=== PATIENT | male | born 1950 | race Caucasian/White ===

== ENCOUNTER 2024-02-20 13:40 | Inpatient (IN) | payer BC, MEDICAID ==
[~2024-02-20] VITALS: Ht 167.6 cm; Wt 84.4 kg
[2024-02-20] MEDS: ACETAMINOPHEN 325MG TABLET PO STA (17:19)
[2024-02-20 18:05] LABS: BASOPHILS % 0.2 % (0.0-2.0); HEMATOCRIT. 39.8 % (42.0-52.0); HEMOGLOBIN. 13.5 g/dL (14.0-18.0); LYMPHOCYTES % 8.3 % (20.0-50.0); MEAN CORPUSCULAR HEMOGLOBIN 31.8 pg (28.0-32.0); MEAN CORPUSCULAR VOLUME 93.7 fL (80.0-94.0); MEAN PLATELET VOLUME 7.6 fl (7.4-10.4); MONOCYTES % 13.7 % (2.0-8.0); NEUTROPHILS % 77.8 % (40.0-76.0); PLATELET 221 x1000/uL (130-400); RED BLOOD CELL COUNT 4.25 mill/uL (4.7-6.1); RED CELL DISTRIBUTION WIDTH 12.8 % (11.6-14.6); WHITE BLOOD COUNT 18.7 x1000/uL (4.5-11.0)
[2024-02-20 18:08] LABS: CHLORIDE 100 mEq/L (98-107); POTASSIUM 3.9 mEq/L (3.5-5.1); SODIUM 135 mEq/L (136-145)
[2024-02-20 18:09] LABS: CALCIUM 9.1 mg/dL (8.7-10.4); CARBON DIOXIDE 29 mEq/L (21-32)
[2024-02-20 18:14] LABS: CREATININE 0.7 mg/dL (0.6-1.3); GLUCOSE 132 mg/dL (70-105); UREA NITROGEN BLOOD 14 mg/dL (9-23)
[2024-02-20 18:16] LABS: ALANINE AMINOTRANSFERASE 27 IU/L (10-49); ALBUMIN 3.9 g/dL (3.2-4.8); ASPARTATE AMINOTRANSFERASE 27 IU/L (<34); BILIRUBIN TOTAL 0.5 mg/dL (0.1-1.0); PROTEIN TOTAL 6.9 g/dL (6.0-8.3)
[2024-02-20] MEDS: PIPERACILLIN/TAZO 3.375G/50ML 50 ML IV STA (20:13)
[2024-02-20] MEDS: KETOROLAC 15MG/ML VIAL IV ONE (20:15)
[2024-02-20 21:13] LABS: LACTIC ACID 2.7 mmol/L (0.4-2.0)
[2024-02-20] MEDS: SODIUM CHLORIDE 0.9% 500 ML IV ONE (22:08)
[2024-02-20] MEDS: SODIUM CHLORIDE 0.9% 1,000 ML IV SCH (22:30)
[2024-02-20] MEDS ORDERED: MAGNESIUM/ALUMINUM HYDROXIDE/SIMETHICONE 30ML UDC PO PRN (22:30)
[2024-02-20] MEDS ORDERED: DEXTROSE 50% WATER 50ML SYRINGE IV PRN (22:30)
[2024-02-20] MEDS ORDERED: ACETAMINOPHEN 325MG TABLET PO PRN ×2 (22:30)
[2024-02-20] MEDS ORDERED: DOCUSATE SODIUM 100MG CAPSULE PO PRN (22:30)
[2024-02-20] MEDS ORDERED: IPRATROPIUM/ALBUTEROL 0.5-3(2.5)MG/3ML NEB HHN PRN (22:30)
[2024-02-20] MEDS ORDERED: ONDANSETRON HCL 4MG/2ML INJ IV PRN (22:30)
[2024-02-20 22:32] LABS: CLARITY URINE CLOUDY (CLEAR); COLOR URINE YELLOW (YELLOW); GLUCOSE URINE NEGATIVE (NEGATIVE); KETONES URINE NEGATIVE (NEGATIVE); LEUKOCYTE ESTERASE URINE 3+ (NEGATIVE); NITRITE URINE POSITIVE (NEGATIVE); OCCULT BLOOD URINE 1+ (NEGATIVE); PH URINE 6.5 (4.5-8.0); PROTEIN URINE NEGATIVE (NEGATIVE); SPECIFIC GRAVITY URINE 1.006 (1.005-1.030); UROBILINOGEN URINE 0.2 E.U./dL (0.2-1.0)
[2024-02-20 22:47] LABS: BACTERIA URINE 2+; SQUAMOUS EPITHELIAL CELL URINE 1+ /lpf (RARE/1+); WBC URINE 25-50 /hpf (0-2)
[2024-02-20] MEDS: LEVETIRACETAM 500MG TABLET PO SCH (23:00)
[2024-02-20] MEDS ORDERED: LEVOFLOXACIN 500MG PREMIX 100 ML IV SCH (23:00)
[2024-02-20 23:27] LABS: PHOSPHORUS 3.1 mg/dL (2.5-4.9)
[2024-02-20 23:32] LABS: FOLIC ACID (FOLATE) SERUM 19.61 ng/mL (>5.38); VITAMIN B12 SERUM 411 pg/mL (211-911)
[2024-02-21] VITALS: BP 102/53; PULSE 68; RESP 18; TEMP 97.5
[2024-02-21 04:00] VITALS: BP 105/49; PULSE 72; RESP 18; TEMP 99.7
[2024-02-21] MEDS: LEVOFLOXACIN 500MG PREMIX 100 ML IV SCH (06:02)
[2024-02-21 06:04] LABS: HEMATOCRIT. 39.5 % (42.0-52.0); HEMOGLOBIN. 13.7 g/dL (14.0-18.0); MEAN CORPUSCULAR HEMOGLOBIN 31.6 pg (28.0-32.0); MEAN CORPUSCULAR HGB CONC 34.7 g/dL (31.0-37.0); MEAN CORPUSCULAR VOLUME 91.2 fL (80.0-94.0); MEAN PLATELET VOLUME 7.2 fl (7.4-10.4); PLATELET 219 x1000/uL (130-400); RED BLOOD CELL COUNT 4.33 mill/uL (4.7-6.1); RED CELL DISTRIBUTION WIDTH 12.6 % (11.6-14.6); WHITE BLOOD COUNT 17.7 x1000/uL (4.5-11.0)
[2024-02-21 06:11] LABS: CHLORIDE 103 mEq/L (98-107); SODIUM 136 mEq/L (136-145)
[2024-02-21 06:12] LABS: CALCIUM 8.7 mg/dL (8.7-10.4); CARBON DIOXIDE 26 mEq/L (21-32)
[2024-02-21 06:16] LABS: CREATINE KINASE MB FRACTION 1.7 ng/mL (0.5-3.6); DIFFERENTIAL COMMENT 1; TROPONIN I HIGH SENSITIVITY 14 ng/L (3.0-53)
[2024-02-21 06:17] LABS: CREATININE 0.7 mg/dL (0.6-1.3); GLUCOSE 114 mg/dL (70-105); TRIGLYCERIDE 58 mg/dL (0-150); UREA NITROGEN BLOOD 13 mg/dL (9-23)
[2024-02-21 06:18] LABS: LDL CHOLESTEROL 54 mg/dL (5-100)
[2024-02-21 06:19] LABS: CHOLESTEROL 86 mg/dL (<200); CREATINE KINASE 247 IU/L (46-171); HDL CHOLESTEROL 25 mg/dL (>55)
[2024-02-21 06:20] LABS: THYROID STIMULATING HORMONE 1.23 uIU/mL (0.55-4.78)
[2024-02-21] MEDS ORDERED: PROM6.2527 PO (06:55)
[2024-02-21] MEDS ORDERED: MULT-622 PO (06:55)
[2024-02-21] MEDS ORDERED: KEPP500 PO (06:55)
[2024-02-21] MEDS ORDERED: ASCO500C18 PO (06:55)
[2024-02-21] MEDS ORDERED: DOCU100T PO (06:55)
[2024-02-21] MEDS: BLOOD SUGAR DIAGNOSTIC STRIP TEST SCH (07:40)
[2024-02-21 08:00] VITALS: BP 96/53; PULSE 102; RESP 18; TEMP 97.7
[2024-02-21] MEDS: INSULIN LISPRO 100 UNITS/ML SUBCUT SCH (08:10)
[2024-02-21] MEDS: FAMOTIDINE 20MG/2ML VIAL IV SCH (10:58)
[2024-02-21] MEDS: ENOXAPARIN 40MG/0.4ML SYR SUBCUT SCH (11:00)
[2024-02-21 12:00] VITALS: BP 115/59; PULSE 93; RESP 20; TEMP 98.8
[2024-02-21 14:30] LABS: PLATELET ESTIMATE NORMAL
[2024-02-21 16:00] VITALS: BP 118/56; PULSE 97; RESP 18; TEMP 98
[2024-02-21] MEDS ORDERED: CEFTRIAXONE 1GM/50ML 50 ML IV SCH (16:45)
[2024-02-21] MEDS: PIPERACILLIN/TAZO 3.375G/50ML 50 ML IV SCH (18:47)
[2024-02-21 20:00] VITALS: BP 106/52; PULSE 88; RESP 18; TEMP 98.9
[2024-02-22] VITALS: BP 102/53; PULSE 91; RESP 19; TEMP 98.2
[2024-02-22 04:00] VITALS: BP 94/50; PULSE 92; RESP 19; TEMP 99.5
[2024-02-22 06:27] LABS: BASOPHILS % 0.2 % (0.0-2.0); EOSINOPHILS % 0.7 % (0.0-5.0); HEMATOCRIT. 38.4 % (42.0-52.0); HEMOGLOBIN. 13.1 g/dL (14.0-18.0); LYMPHOCYTES % 8.6 % (20.0-50.0); MEAN CORPUSCULAR HEMOGLOBIN 31.5 pg (28.0-32.0); MEAN CORPUSCULAR HGB CONC 34.1 g/dL (31.0-37.0); MEAN CORPUSCULAR VOLUME 92.2 fL (80.0-94.0); MEAN PLATELET VOLUME 7.2 fl (7.4-10.4); MONOCYTES % 8.7 % (2.0-8.0); NEUTROPHILS % 81.8 % (40.0-76.0); PLATELET 218 x1000/uL (130-400); RED BLOOD CELL COUNT 4.17 mill/uL (4.7-6.1); RED CELL DISTRIBUTION WIDTH 12.6 % (11.6-14.6); WHITE BLOOD COUNT 12.1 x1000/uL (4.5-11.0)
[2024-02-22 06:32] LABS: CHLORIDE 107 mEq/L (98-107); POTASSIUM 3.8 mEq/L (3.5-5.1); SODIUM 138 mEq/L (136-145)
[2024-02-22 06:33] LABS: CALCIUM 8.3 mg/dL (8.7-10.4); CARBON DIOXIDE 24 mEq/L (21-32)
[2024-02-22 06:38] LABS: CREATININE 0.7 mg/dL (0.6-1.3); GLUCOSE 115 mg/dL (70-105); UREA NITROGEN BLOOD 14 mg/dL (9-23)
[2024-02-22 08:00] VITALS: BP 105/67; PULSE 99; RESP 18; TEMP 97.6
[2024-02-22 12:00] VITALS: BP 104/79; PULSE 91; RESP 18; TEMP 97.4
[2024-02-22 16:00] VITALS: BP 110/78; PULSE 86; RESP 19; TEMP 97.4
[2024-02-22 20:00] VITALS: BP 115/70; PULSE 76; RESP 18; TEMP 97.6
[2024-02-23] VITALS: BP 122/60; PULSE 80; RESP 20; TEMP 98.8
[2024-02-23 08:00] VITALS: BP 136/73; PULSE 84; RESP 18; TEMP 98.8
[2024-02-23 12:24] VITALS: BP 107/63; PULSE 88; RESP 18; TEMP 98.4
[2024-02-23 16:00] VITALS: BP 112/74; PULSE 84; RESP 18; TEMP 98.7
[2024-02-23 20:00] VITALS: BP 114/72; PULSE 72; RESP 18; TEMP 98
[2024-02-24] VITALS: BP 109/72; PULSE 73; RESP 17; TEMP 98
[2024-02-24 04:00] VITALS: BP 109/66; PULSE 72; RESP 17; TEMP 98
[2024-02-24 06:23] LABS: HEMATOCRIT 40.1 % (42.0-52.0); HEMOGLOBIN 13.9 g/dL (14.0-18.0); MEAN CORPUSCULAR HEMOGLOBIN 31.9 pg (28.0-32.0); MEAN CORPUSCULAR HGB CONC 34.7 g/dL (31.0-37.0); MEAN CORPUSCULAR VOLUME 92.1 fL (80.0-94.0); PLATELET 277 x1000/uL (130-400); RED BLOOD CELL COUNT 4.35 mill/uL (4.7-6.1); WHITE BLOOD COUNT 6.7 x1000/uL (4.5-11.0)
[2024-02-24 06:28] LABS: CARBON DIOXIDE 27 mEq/L (21-32); CHLORIDE 106 mEq/L (98-107); POTASSIUM 3.9 mEq/L (3.5-5.1); SODIUM 138 mEq/L (136-145)
[2024-02-24 06:29] LABS: CALCIUM 8.7 mg/dL (8.7-10.4)
[2024-02-24 06:32] LABS: CREATININE 0.6 mg/dL (0.6-1.3)
[2024-02-24 06:33] LABS: GLUCOSE 101 mg/dL (70-105)
[2024-02-24 06:34] LABS: UREA NITROGEN BLOOD 13 mg/dL (9-23)
[2024-02-24 15:11] VITALS: BP 110/70; PULSE 90; TEMP 98; O2SAT 98
[2024-02-24] MEDS ORDERED: CEFTRIAXONE 2GM/50ML 50 ML IV SCH (17:00)
[2024-02-25] MEDS ORDERED: LEVOFLOXACIN 500MG TABLET PO SCH (06:00)
== END 2024-02-24 17:23 | disposition home or self-care (01) | DRG 871 ==
LOC: ER 13:40 → 7WST 20:27 → EDBEDREQ 20:37 → EDBEDREQTM 20:37 → EDBEDREQSVC 22:20
PROVIDERS: ADMIT Internal Medicine; ATTEND Internal Medicine
DX: A41.9 Sepsis, unspecified organism (principal); G92.8 Other toxic encephalopathy; E87.1 Hypo-osmolality and hyponatremia; M62.82 Rhabdomyolysis; N39.0 Urinary tract infection, site not specified; N45.3 Epididymo-orchitis; G40.909 Epilepsy, unspecified, not intractable, without status epilepticus; F79 Unspecified intellectual disabilities; D63.8 Anemia in other chronic diseases classified elsewhere; E78.5 Hyperlipidemia, unspecified; B96.20 Unspecified Escherichia coli [E. coli] as the cause of diseases classified elsewhere; R62.50 Unspecified lack of expected normal physiological development in childhood
CPT/HCPCS: 36415; 71045; 76870; 80048; 80053; 80061; 81003; 82550; 82553; 82607; 82746; 82962; 83036; 83605; 83735; 84100; 84145; 84443; 84484; 85025; 85027; 87077; 87186; 92610; 93970; 93976; 97162; 97165; 99285; J0696; J1650; J1815; J1885; J1956; J2543; J3490

== ENCOUNTER 2024-11-13 15:46 | Emergency (ER) | payer BC, MEDICAID ==
[~2024-11-13] VITALS: Ht 177.8 cm; Wt 91.0 kg
[~2024-11-13 15:46] MED LIST: ASCO500C18 PO; DOCU100T PO; KEPP500 PO; MULT-622 PO; PROM6.2527 PO
[2024-11-13 15:54] VITALS: O2SAT 98
[2024-11-13 16:02] VITALS: TEMP 36.9
[2024-11-13] MEDS ORDERED: LIDOCAINE HCL/PF 1% 10 MG/ML 5ML VIAL INFIL NR (17:00)
[2024-11-13] MEDS ORDERED: BACITRACIN ZINC OINT UDPKT TOP NR (17:00)
[2024-11-13] MEDS ORDERED: TETANUS, DIPHTHERIA, PERTUSSIS VAC/PF 0.5ML (>10YR OLD) IM ONE ×2 (18:00→20:24)
[2024-11-13] MEDS ORDERED: MIDAZOLAM HCL 2 MG/2 ML VIAL IM ONE (18:45)
[2024-11-13 19:03] VITALS: BP 0/0; PULSE 92; RESP 18; O2SAT 100
[2024-11-13] MEDS: MIDAZOLAM HCL 2 MG/2 ML VIAL IM STA (19:03)
[2024-11-13] MEDS: IBUPROFEN 600MG TABLET PO NR (19:03)
[2024-11-13] MEDS ORDERED: IBUP-2029 MT (19:55)
[2024-11-13] MEDS ORDERED: CEPH500C2 MT (19:55)
== END 2024-11-13 20:24 | disposition home or self-care (01) ==
LOC: ER 15:46
DX: S61.211A Laceration without foreign body of left index finger without damage to nail, initial encounter (principal); I10 Essential (primary) hypertension; F79 Unspecified intellectual disabilities; Z79.899 Other long term (current) drug therapy; W22.09XA Striking against other stationary object, initial encounter; Y93.89 Activity, other specified; Y92.89 Other specified places as the place of occurrence of the external cause; Y99.8 Other external cause status
CPT/HCPCS: 99283; 73120; 96372; J2003; J2250